=== PATIENT | male | born 1960 | race African-American/Black ===

== ENCOUNTER 2018-08-10 02:39 | Emergency (ER) | payer SELFPAY ==
[~2018-08-10] VITALS: Ht 172.7 cm; Wt 64.0 kg
[2018-08-10] MEDS ORDERED: KETOROLAC 30MG/ML VIAL IM ONE (03:15)
[2018-08-10] MEDS ORDERED: MORPHINE SULFATE 10 MG/ML CPJ IM ONE (03:15)
[2018-08-10 07:30] VITALS: BP 125/70
== END 2018-08-10 07:30 | disposition home or self-care (01) ==
LOC: ER 02:39
DX: S01.512A Laceration without foreign body of oral cavity, initial encounter (principal); S16.1XXA Strain of muscle, fascia and tendon at neck level, initial encounter; S00.83XA Contusion of other part of head, initial encounter; V49.88XA Car occupant (driver) (passenger) injured in other specified transport accidents, initial encounter; Y93.89 Activity, other specified; Y92.89 Other specified places as the place of occurrence of the external cause; Y99.8 Other external cause status
CPT/HCPCS: 70450; 71045; 72125; 96372; 99284; J1885; J2270

== ENCOUNTER 2018-08-27 15:23 | Emergency (ER) | payer SELFPAY ==
[~2018-08-27] VITALS: Ht 175.3 cm; Wt 68.0 kg
[2018-08-27 16:19] VITALS: BP 119/81
== END 2018-08-27 18:18 | disposition home or self-care (01) ==
LOC: ER 15:23
DX: Z13.89 Encounter for screening for other disorder (principal); V89.2XXA Person injured in unspecified motor-vehicle accident, traffic, initial encounter; Y93.89 Activity, other specified; Y92.89 Other specified places as the place of occurrence of the external cause; Y99.8 Other external cause status
CPT/HCPCS: 99281

== ENCOUNTER 2023-08-18 06:32 | Emergency (ER) | payer OTHER ==
[~2023-08-18] VITALS: Ht 182.9 cm; Wt 64.0 kg
[2023-08-18 06:36] VITALS: O2SAT 97
[2023-08-18] MEDS: ONDANSETRON 4MG ODT PO ONE (07:11)
[2023-08-18 08:27] VITALS: BP 124/92; PULSE 88; RESP 16; TEMP 98.3
== END 2023-08-18 08:31 | disposition home or self-care (01) ==
LOC: ER 06:32
DX: S00.83XA Contusion of other part of head, initial encounter (principal); W18.39XA Other fall on same level, initial encounter; Y93.89 Activity, other specified; Y92.89 Other specified places as the place of occurrence of the external cause; Y99.8 Other external cause status
CPT/HCPCS: 70450; 99284; Q0162; Z7610